=== PATIENT | female | born 1995 | race Caucasian/White ===

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

== ENCOUNTER 2017-06-20 06:15 | Inpatient (IN) | payer BC, OTHER ==
--- NOTE | 2017-06-19 19:09 | P.HPOB ---
History of Present Illness H&P Date: 06/19/17 Chief Complaint: Induction of labor This is a 21-year-old female 2 para 0 with an estimated date of confinement of 06/16/2017, estimated gestational age of 40-4/7 weeks, who presents to labor and delivery for induction of labor. She admits to good movement. She denies any rupture membranes. She has been feeling irregular pressure and cramping but no regular contractions. course has been uncomplicated. labs: Group B streptococcus-negative One hour Glucola-83 Random glucose-84 Blood type-A+ Antibody screen-negative HIV-nonreactive Syphilis antibody-negative nonreactive GC/chlamydia-negative Hepatitis B surface antigen-negative Hemoglobin-13.3 Rubella-low positive Obstetrical history: . History of 1 miscarriage (confidential). PRODUCE ASSISTANT history: No history of sexual transmitted diseases. Social history: She is single. 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 Review of Systems Constitutional: Denies chills, Denies fever Eyes: denies blurred vision, denies pain Ears, nose, mouth and throat: Denies headache, Denies sore throat Cardiovascular: Denies chest pain, Denies shortness of breath Respiratory: Denies cough Gastrointestinal: Reports abdominal pain (Irregular contractions) Genitourinary: Reports pelvic pain, Reports Musculoskeletal: Reports low back pain Integumentary: Denies pruritus, Denies rash Neurological: Denies numbness, Denies weakness Psychiatric: Denies anxiety, Denies depression Past Medical History Past Medical History: No Reported History History of Any Multi-Drug Resistant Organisms: None Reported Additional Past Surgical History / Comment(s): [place] teeth Past Psychological History: No Psychological Hx Reported Smoking Status: Never smoker Past Alcohol Use History: None Reported Past Drug Use History: None Reported Medications and Allergies Home Medications Medication Instructions Recorded Confirmed Type No Known Home Medications [No 05/23/15 05/23/15 History Known Home Medications] Allergies Allergy/AdvReac Type Severity Reaction Status Date / Time No Known Allergies Allergy Verified 05/23/15 18:59 Exam Osteopathic Statement: *. No significant issues noted on an osteopathic structural exam other than those noted in the History and Physical/Consult. HEENT: Within normal limits Heart: Regular rate and rhythm Lungs: Clear to auscultation bilaterally Abdomen: heart tones: 130s by Doppler. Cervix: 1 cm/60%/-2 Extremities: Negative Homans Assessment and Plan (1) 40 weeks gestation of Status: Acute Code(s): Z3A.40 - 40 WEEKS GESTATION OF SNOMED Code( s): 26031573 Plan: Proceed with oxytocin induction of labor. Expectant management. Epidural anesthesia if desired.
[2017-06-20] MEDS ORDERED: LIDOCAINE 1% (PF) 10 MG/ML (30 ML SDV) SQ PRN (06:39)
[2017-06-20] MEDS ORDERED: LIDOCAINE 1% 20 ML VIAL (10MG/ML) FOR IV START INTRADERMA PRN (06:39)
[2017-06-20] MEDS ORDERED: OXYTOCIN 20 UNITS/1000 ML NS 1,000 ML IV SCH (06:39)
[2017-06-20] MEDS ORDERED: METHYLERGONOVINE 0.2 MG/ML 1 ML AMP IM PRN (06:39)
[2017-06-20] MEDS ORDERED: CARBOPROST TROMETHAMINE 250 MCG/ML 1 ML AMP IM PRN (06:39)
[2017-06-20] MEDS ORDERED: TERBUTALINE 1 MG/ML VIAL SQ PRN (06:39)
[2017-06-20] MEDS ORDERED: OXYTOCIN 10 UNIT/ML 1 ML VIAL IM PRN (06:39)
[2017-06-20 06:50] VITALS: BMI 31.1
[2017-06-20] MEDS: LACTATED RINGERS 1,000 ML IV SCH ×2 (06:57→14:12)
[2017-06-20 07:14] LABS: Basophils % (A) 0 %; Eosinophils # (A) 0.3 k/uL (0-0.7); Eosinophils % (A) 2 %; HCT 35.9 % (34.0-46.0); HGB 11.6 gm/dL (11.4-16.0); Lymphocytes # (A) 2.1 k/uL (1.0-4.8); Lymphocytes % (A) 19 %; MCH 29.5 pg (25.0-35.0); MCHC 32.4 g/dL (31.0-37.0); MCV 91.2 fL (80.0-100.0); Mean Platelet Volume 11.7; Monocytes # (A) 0.5 k/uL (0-1.0); Monocytes % (A) 4 %; Neutrophils # (A) 8.1 k/uL (1.3-7.7); Neutrophils % (A) 72 %; Platelet Count 164 k/uL (150-450); RBC 3.94 m/uL (3.80-5.40); RDW 13.4 % (11.5-15.5); WBC 11.1 k/uL (4.0-11.0)
[2017-06-20 08:52] LABS: Large Platelets Present
[2017-06-20] MEDS: BUTORPHANOL 1 MG/ML 1 ML VIAL IV PRN ×3 (10:24→15:14)
[2017-06-20] MEDS ORDERED: SODIUM CHLORIDE 0.9% 100 ML BAG ONE (16:29)
[2017-06-20] MEDS ORDERED: BUPIVACAINE (PF) 0.25% 30 ML VIAL ONE (16:29)
[2017-06-20] MEDS ORDERED: fentaNYL (PF) 50 MCG/ML 5 ML AMP ONE (16:29)
[2017-06-21] MEDS: LACTATED RINGERS 1,000 ML IV SCH ×3 (00:03→20:58)
[2017-06-21] MEDS ORDERED: ceFAZolin IN SWFI 2 GM/20 ML SYRINGE IVP ONE (01:28)
[2017-06-21] MEDS ORDERED: LACTATED RINGERS 1,000 ML IV ONE (01:28)
[2017-06-21] MEDS ORDERED: CITRIC ACID-SODIUM CITRATE 15 ML CUP PO ONE (01:28)
[2017-06-21] MEDS ORDERED: BUPIVACAINE (PF) 0.25% 30 ML VIAL ONE (02:07)
[2017-06-21] MEDS ORDERED: KETOROLAC 30 MG/ML 1 ML VIAL ONE (02:07)
[2017-06-21] MEDS ORDERED: OXYTOCIN 10 UNIT/ML 1 ML VIAL ONE (02:07)
[2017-06-21] MEDS ORDERED: SODIUM CHLORIDE 0.9% 100 ML BAG ONE (02:07)
[2017-06-21] MEDS ORDERED: ONDANSETRON 4 MG/2 ML VIAL ONE (02:07)
[2017-06-21] MEDS ORDERED: fentaNYL (PF) 50 MCG/ML 5 ML AMP ONE (02:07)
[2017-06-21] MEDS ORDERED: MIDAZOLAM 2 MG/2 ML VIAL ONE (02:07)
--- NOTE | 2017-06-21 02:55 | P.OP ---
Date of Procedure: 06/21/17 Preoperative Diagnosis: 1. Intrauterine at 40-5/7 weeks. 2. Failure to progress. Postoperative Diagnosis: Same Procedure(s) Performed: Primary low transverse section Anesthesia: epidural Surgeon: Twyla Madden Bottomer Operator #1: Lynn Palacios Estimated Blood Loss (ml): 500 Pathology: other (Placenta) Condition: stable Disposition: floor Indications for Procedure: This is a 21-year-old female 2 para 0 at 40-4/7 weeks who presented for induction of labor. She underwent oxytocin induction of labor and did receive epidural anesthesia. She reached a maximum of 5-1/2 cm with no change control specialist at least it 2-3 hour period of time despite regular contractions. At this point she was almost 18 hours into her labor process. She was offered a section versus proceeding with waiting out labor longer and she wishes to proceed with . I have discussed the risks, benefits, and alternative therapies for the above- mentioned procedure and for both sedation/anesthesia as well as necessary blood products administration, if indicated, as they pertain to this patient. The patient has indicated her understanding and acceptance of the risks and procedures discussed. Operative Findings: A viable male is noted in the vertex presentation and a RAJI lie. There was noted some caput slightly off to the side of the head. Infant scores of 9 at 1 minute and 9 at 5 minutes and infant weight of 8 lbs. 6 oz. Normal uterus tubes and ovaries are noted. Description of Procedure: The patient is taken to the operating room where she is placed in the dorsal supine position with leftward tilt after epidural anesthesia is bolused. She is prepped and draped in the normal sterile fashion. Skin was tested and found to be adequately anesthetized. A Pfannenstiel skin incision was made with a scalpel. A second knife was used to carry the incision down to the underlying layer of fascia. The fascia was nicked in the midline with a scalpel and then extended laterally bilaterally with King scissors. The anterior lip of the fascia was grasped with 2 Chidi clamps and then dissected off the underlying rectus muscle in the midline with King scissors. The inferior aspect of the fascial incision was grasped with 2 Chidi clamps and dissected off the underlying rectus muscle and the midline with King scissors. Next the peritoneum layer was tented up with 2 hemostats and then entered sharply with the scalpel. The incision is extended superiorly and inferiorly with Metzenbaum scissors. Next a DeLee retractor is placed. The vesicouterine peritoneum is entered sharply with Metzenbaum scissors and extended laterally bilaterally with Metzenbaum scissors and then the bladder flap is pushed inferiorly. The lower uterine segment is incised in transverse fashion with the scalpel and then bluntly entered with a hemostat. Clear fluid is noted. The incision was then extended laterally bilaterally with 2 fingers. Next the 's head is delivered through the incision. Nose and mouth are bulb suctioned. The remainder of the is easily delivered and placed on mother 's abdomen. Cord is clamped and cut. is taken to warmer by nursing staff. Uterine fundus is gently massaged and placenta is delivered manually. Uterus is exteriorized and cleared of all clots and debris. Uterine incision is closed with 0 Vicryl suture in a running locked fashion. A second layer of 0 Vicryl suture is used in a running fashion for hemostasis. Once adequate hemostasis as assured, the vesicouterine peritoneum is reapproximated with 2-0 Vicryl suture in a running fashion. Posterior cul-de-sac is suctioned of all clots and debris. Uterus is returned to the abdomen. Incision is noted to be hemostatic. Peritoneal layer is closed with 0 Vicryl suture in a running fashion. Muscle layer is reapproximated with 0 Vicryl suture in interrupted fashion. Fascia layer is then closed with 0 PDS suture with 2 sutures meeting in the midline and the knots buried in either side and in the midline. The subcutaneous tissue was then closed with 2-0 Vicryl suture. Skin layer was then closed with car. All sponge and needle counts are correct. The patient is taken to recovery room in stable condition.
[2017-06-21] MEDS ORDERED: ZOLPIDEM 5 MG TAB PO PRN (02:59)
[2017-06-21] MEDS ORDERED: ACETAMINOPHEN TAB 325 MG TAB PO PRN ×2 (02:59)
[2017-06-21] MEDS ORDERED: diphenhydrAMINE 50 MG CAP PO PRN (02:59)
[2017-06-21] MEDS ORDERED: ONDANSETRON 4 MG/2 ML VIAL IVP PRN (02:59)
[2017-06-21] MEDS ORDERED: NALOXONE 0.4 MG/ML 1 ML VIAL IV PRN (02:59)
[2017-06-21] MEDS ORDERED: MEASLES-MUMPS-RUBELLA VACC/PF 12,500 UNIT/0.5 ML VIAL SQ ONE (02:59)
[2017-06-21] MEDS ORDERED: BENZOCAINE/MENTHOL SPRAY 1 GM/SPRAY AEROSOL TOPICAL PRN (02:59)
[2017-06-21] MEDS ORDERED: diphenhydrAMINE 50 MG/ML 1 ML VIAL IVP PRN ×2 (02:59)
[2017-06-21] MEDS ORDERED: IBUPROFEN 600 MG TAB PO PRN (02:59)
[2017-06-21] MEDS ORDERED: HYDROmorphone PCA 5 MG/25 ML SYRINGE IV PRN (02:59)
[2017-06-21] MEDS ORDERED: OXYTOCIN 20 UNITS/1000 ML NS 1,000 ML IV SCH (02:59)
[2017-06-21] MEDS ORDERED: SIMETHICONE 80 MG CHEWABLE PO PRN (02:59)
[2017-06-21] MEDS ORDERED: METOCLOPRAMIDE 5 MG/ML 2 ML VIAL IVP PRN (02:59)
[2017-06-21] MEDS ORDERED: LANOLIN CREAM 5 GM TUBE TOPICAL PRN (02:59)
[2017-06-21] MEDS ORDERED: HYDROCORTISONE 2.5% RECTAL CREAM 30 GM TUBE RECTAL PRN (02:59)
[2017-06-21] MEDS ORDERED: WITCH HAZEL 1 EACH MED..PAD TOPICAL PRN (02:59)
[2017-06-21] MEDS ORDERED: Acetaminophen-Codeine 300-30mg TAB PO PRN (02:59)
[2017-06-21] MEDS ORDERED: diphenhydrAMINE 25 MG CAP PO PRN (02:59)
[2017-06-21] MEDS: KETOROLAC 30 MG/ML 1 ML VIAL IVP PRN ×3 (08:34→20:54)
[2017-06-21] MEDS: SENNOSIDES-DOCUSATE SODIUM 1 EACH TAB PO SCH ×3 (08:35→20:54)
[2017-06-22] MEDS: KETOROLAC 30 MG/ML 1 ML VIAL IVP PRN (02:31)
[2017-06-22] MEDS: Acetaminophen-Codeine 300-30mg TAB PO PRN ×3 (04:13→19:58)
[2017-06-22] MEDS: IBUPROFEN 600 MG TAB PO PRN ×3 (05:37→23:43)
[2017-06-22 07:25] LABS: Basophils # (A) 0.1 k/uL (0-0.2); Basophils % (A) 0 %; Eosinophils # (A) 0.3 k/uL (0-0.7); Eosinophils % (A) 2 %; HCT 36.4 % (34.0-46.0); HGB 11.6 gm/dL (11.4-16.0); Lymphocytes # (A) 2.6 k/uL (1.0-4.8); Lymphocytes % (A) 18 %; MCH 29.5 pg (25.0-35.0); MCHC 31.8 g/dL (31.0-37.0); Mean Platelet Volume 11.6; Monocytes # (A) 0.5 k/uL (0-1.0); Monocytes % (A) 4 %; Neutrophils # (A) 10.6 k/uL (1.3-7.7); Neutrophils % (A) 75 %; Platelet Count 162 k/uL (150-450); RBC 3.92 m/uL (3.80-5.40); RDW 13.8 % (11.5-15.5); WBC 14.1 k/uL (4.0-11.0)
[2017-06-22 07:41] LABS: Polychromasia Present
[2017-06-22] MEDS: SENNOSIDES-DOCUSATE SODIUM 1 EACH TAB PO SCH ×2 (08:11→23:18)
--- NOTE | 2017-06-22 12:15 | P.PNOBGPC ---
Subjective - Subjective Principal diagnosis: Status post primary section postoperative day #1 Interval history: Patient is doing well. She is ambulating. She is breast-feeding. She is passing flatus but no bowel movement yet. Lochia is decreasing. Pain is fairly well controlled with ibuprofen and Tylenol. Patient reports: Reports appetite normal, Reports voiding normally, Reports pain well controlled, Reports ambulating normally [place]: doing well, nursing well Objective - Vital Signs Latest vital signs: Vital Signs Temp Pulse Resp BP Pulse Ox 06/22/17 08:00 98.1 F 80 16 118/67 06/22/17 04:14 98.0 F 72 12 114/66 97 06/22/17 00:00 98.1 F 76 15 113/68 98 06/21/17 20:00 98.7 F 85 16 120/70 06/21/17 15:28 98.1 F 78 16 124/68 99 Intake and Output 06/21/17 06/22/17 06/22/17 22:59 06:59 14:59 Intake Total 5 Output Total 450 Balance -450 5 Intake: IV 5 Invasive Line 1 5 Output: Urine 450 - Exam Extremities: Present: edema. Absent: tenderness Abdomen: Present: normal appearance, soft (Positive bowel sounds 4). Absent: distention, tenderness Incision: Present: normal, dry, intact. Absent: erythematous Uterus: Present: normal, firm. Absent: tenderness - Labs Labs: Abnormal Lab Results - Last 24 Hours (Table) 06/22/17 Range/Units 07:00 WBC 14.1 H (4.0-11.0) k/uL Neutrophils # 10.6 H (1.3-7.7) k/uL Assessment and Plan Assessment: Impression is status post primary section postoperative day #1. (1) 40 weeks gestation of Current Visit: Yes Status: Acute Code(s): Z3A.40 - 40 WEEKS GESTATION OF SNOMED Code(s): 71420319 Plan: Plan is to continue with postoperative care. Diet as tolerated. Advised alternate pain medication for adequate pain control.
[2017-06-22] MEDS: LACTATED RINGERS 1,000 ML IV SCH (23:17)
[2017-06-23] MEDS: Acetaminophen-Codeine 300-30mg TAB PO PRN ×2 (03:50→12:14)
--- NOTE | 2017-06-23 08:34 | P.DS ---
Providers Date of admission: 06/20/17 06:20 Expected date of discharge: 06/23/17 Attending physician: Twyla Madden Primary care physician: Stated None - Discharge Diagnosis(es) (1) 40 weeks gestation of Current Visit: Yes Status: Acute Hospital Course: This is a 21-year-old female 2 para 0 at 40-4/7 weeks who presented for induction of labor. She underwent oxytocin induction of labor and reached a maximum dilation of 5-1/2 cm. She therefore underwent a primary low transverse section on 06/21/2017 and delivered a viable female in the vertex presentation with Apgars of 9 at 1 minute and 9 at 5 minutes and weight of 8 lbs. 6 oz. Her postoperative course has been essentially uncomplicated. Her pain is fairly well controlled with ibuprofen and Tylenol 3. She is passing flatus and bowel movement. She is breast-feeding. Vital signs are stable. Abdomen is soft with fundus firm and nontender. Positive bowel sounds are present 4. Incision is clean dry and intact. Extremities show negative Homans. Impression is status post primary low transverse section postoperative day #2. Plan is to discharge home today. Routine postoperative and instructions are given. Marci will be removed and Steri-Strips placed prior to discharge. She will be given prescriptions for ibuprofen, Tylenol No. 3, and a breast pump. She is advised to follow up in the office in approximately 1 week for a postoperative check and in 6 weeks for check. She is advised to call the office if she has any further questions or concerns prior to her appointment times. Procedures: Oxytocin induction of labor Primary low transverse section on 06/21/2017 Patient Condition at Discharge: Stable Plan - Discharge Summary New Discharge Prescriptions: New Acetaminophen-Codeine 300-30mg [Tylenol w/codeine #3] 1 each PO Q4HR PRN #30 tab PRN Reason: Mild Pain Ibuprofen [Motrin] 600 mg PO Q6HR PRN #60 tab PRN Reason: Mild Pain Or Fever >= 100.5 Continue Pnv No.111/Iron/Folate/Dha [Nestabs One Softgel] 1 each PO DAILY Discharge Medication List Pnv No.111/Iron/Folate/Dha [Nestabs One Softgel] 1 each PO DAILY 06/20/17 [ History] Acetaminophen-Codeine 300-30mg [Tylenol w/codeine #3] 1 each PO Q4HR PRN #30 tab 06/23/17 [Rx] Ibuprofen [Motrin] 600 mg PO Q6HR PRN #60 tab 06/23/17 [Rx] Follow up Appointment(s)/Referral(s): Twyla Madden DO [Doctor of Osteopathic Medicine] - 1 Week Activity/Diet/Wound Care/Special Instructions: Instructions 1. Do not begin any exercise program for 3 weeks. 2. Do not resume sexual relations for 3 weeks or longer if uncomfortable. 3. You may take tub baths or showers at any time. 4. You may use tampons if desired after 3 weeks. 5. Keep the area of episiotomy (stitches) clean and dry. 6. If you are not nursing, wear a good fitting, supportive bra during the day and limit fluid intake for at least 1 week to prevent breast engorgement. 7. Call the office, [phone], within the next week to make appointment for your 6 week checkup if it has not already been made. 8. Report any of the following occurrences to the doctor promptly: a. Heavy, excessive bleeding b. Chills, fever c. Burning or frequency of urination d. Pain or redness and breasts if nursing e. Increasing pain or swelling in episiotomy (stitches). In addition to the above instructions, the following additional should be followed: 1. No heavy lifting or straining (exercising) until after 6 week checkup. 2. Keep abdominal incision clean and dry: You may wear a dressing if more comfortable. 3. Make office appointment for 10 days after going home or as instructed by her doctor. Discharge Disposition: HOME SELF-CARE
[2017-06-23] MEDS: SENNOSIDES-DOCUSATE SODIUM 1 EACH TAB PO SCH (08:47)
[2017-06-23] MEDS: IBUPROFEN 600 MG TAB PO PRN (08:47)
[2017-06-23 11:30] VITALS: BP 129/74; PULSE 75; RESP 18; TEMP 97.7
== END 2017-06-23 12:53 | disposition home or self-care (01) | DRG 766 ==
LOC: 4FBP 06:20
PROVIDERS: ADMIT Obstetrics & Gynecology; ATTEND Obstetrics & Gynecology
PROC: 3E033VJ Introduction of Other Hormone into Peripheral Vein, Percutaneous Approach (ICD-10-PCS; 2017-06-21)
PROC: 00HU33Z Insertion of Infusion Device into Spinal Canal, Percutaneous Approach (ICD-10-PCS; 2017-06-21)
PROC: 3E0R3NZ Introduction of Analgesics, Hypnotics, Sedatives into Spinal Canal, Percutaneous Approach (ICD-10-PCS; 2017-06-21)
PROC: 10D00Z1 Extraction of Products of Conception, Low, Open Approach (ICD-10-PCS; principal; 2017-06-21 02:00)
DX: O48.0 Post-term pregnancy (principal); O62.2 Other uterine inertia; Z3A.40 40 weeks gestation of pregnancy; Z37.0 Single live birth
CPT/HCPCS: 85025; 86850; 86900; 86901; 88307; 90707

== ENCOUNTER → 2018-07-01 | Outpatient (CLI) | payer BC, OTHER ==
--- NOTE | 2018-07-01 09:21 | US ---
EXAMINATION TYPE: US abdomen complete DATE OF EXAM: 07/01/2018 COMPARISON: NONE CLINICAL HISTORY: R10.11 Right Upper Quadrant abd pain. EXAM MEASUREMENTS: Liver Length: 15.5 cm Gallbladder Wall: 0.2 cm CBD: 0.4 cm Spleen: 12.7 cm Right Kidney: 11.8 x 4.0 x 5.1 cm Left Kidney: 10.6 x 5.5 x 4.5 cm Pancreas: not well delineated, Liver: wnl Gallbladder: No stones seen Evidence for sonographic Zabala's sign: no CBD: wnl Spleen: wnl Right Kidney: No hydronephrosis or masses seen Left Kidney: No hydronephrosis or masses seen Upper IVC: wnl Abd Aorta: wnl The liver is homogenous. The intrahepatic portion of the IVC and proximal abdominal aorta are within normal limits. There is no evidence of cholelithiasis. Common bile duct is unremarkable. The visu alized portions of the pancreas are homogenous. The spleen is unremarkable. Kidneys are symmetric a nd free of hydronephrosis. No renal lesions are seen. IMPRESSION: No distinct abnormality appreciated.
== END | disposition home or self-care (01) ==
LOC: RADUSWWP 07:44
PROVIDERS: ATTEND Internal Medicine
DX: R10.11 Right upper quadrant pain (principal)
CPT/HCPCS: 76700

== ENCOUNTER → 2019-10-21 | Outpatient (CLI) | payer BC, OTHER ==
[2019-10-21 14:51] LABS: HCT 38.2 % (34.0-46.0); HGB 12.5 gm/dL (11.4-16.0); MCH 29.4 pg (25.0-35.0); MCHC 32.6 g/dL (31.0-37.0); MCV 90.3 fL (80.0-100.0); Mean Platelet Volume 9.9; Platelet Count 227 k/uL (150-450); RBC 4.23 m/uL (3.80-5.40); RDW 12.8 % (11.5-15.5); WBC 11.4 k/uL (3.8-10.6)
[2019-10-22 00:26] LABS: Non-African American GFR(CKD) 129.4 (60.0-200.0)
[2019-10-22 00:40] LABS: Hepatitis B Surface Antigen Non-Reactive (Non-Reactive)
[2019-10-22 08:47] LABS: HIV 2 AB Non-Reactive (Non-Reactive); HIV AB P24 Non-Reactive (Non-Reactive); HIV P24 AG Non-Reactive (Non-Reactive)
== END | disposition home or self-care (01) ==
LOC: LABWHC1 14:01
PROVIDERS: ATTEND Obstetrics & Gynecology
DX: Z34.81 Encounter for supervision of other normal pregnancy, first trimester (principal); Z3A.00 Weeks of gestation of pregnancy not specified
CPT/HCPCS: 36415; 82565; 82947; 85027; 86762; 86780; 86850; 86900; 86901; 87340; 87390

== ENCOUNTER 2020-05-16 06:14 | Inpatient (IN) | payer BC, OTHER ==
--- NOTE | 2020-05-15 07:15 | P.HPOB ---
History of Present Illness H&P Date: 05/15/20 Chief Complaint: Scheduled repeat section This is a 24 y.o. female, 3, para 1, with an estimated date of confinement of 05/20/2020, estimated gestational age of 39-3/7 weeks, presents for scheduled repeat section. She denies regular contractions, but does complain of lower back pain and lower extremity swelling. labs: GC/Chlamydia/Trich-neg HIV-NR Hemoglobin-12.5 Random glucose-87 Hepatitis B surface antigen-neg Rubella-immune Syphyillis antigen-neg Blood type-A+ Antibody screen-neg Quad screen-neg 1 hr. GTT-86 GBS-neg OB Hx: . History of 1 at 40-4/7 weeks due to failed induction. 1 miscarriage. 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 Review of Systems Constitutional: Denies chills, Denies fever Eyes: denies blurred vision, denies pain Ears, nose, mouth and throat: Denies headache, Denies sore throat Cardiovascular: Denies chest pain, Denies shortness of breath Respiratory: Denies cough Gastrointestinal: Denies abdominal pain, Denies diarrhea, Denies nausea, Denies vomiting Genitourinary: Reports pelvic pain, Reports Musculoskeletal: Reports low back pain Musculoskeletal: bilateral: ankle swelling, foot swelling Integumentary: Denies pruritus, Denies rash Neurological: Denies numbness, Denies weakness Psychiatric: Denies anxiety, Denies depression Past Medical History Past Medical History: No Reported History History of Any Multi-Drug Resistant Organisms: None Reported Past Surgical History: Section Additional Past Surgical History / Comment(s): [place] teeth Past Anesthesia/Blood Transfusion Reactions: No Reported Reaction Past Psychological History: No Psychological Hx Reported Smoking Status: Never smoker Past Alcohol Use History: None Reported Past Drug Use History: None Reported - Past Family History Mother Family Medical History: Hypertension Medications and Allergies Home Medications Medication Instructions Recorded Confirmed Type Multivit No.42/Iron/Folate/Dha 1 each PO DAILY 06/20/17 05/16/20 History [Nestabs One Softgel] Allergies Allergy/AdvReac Type Severity Reaction Status Date / Time No Known Allergies Allergy Verified 05/15/20 11:55 Exam Osteopathic Statement: *. No significant issues noted on an osteopathic structural exam other than those noted in the History and Physical/Consult. HEENT: within normal limits Heart: regular rate and rhythm Lungs: clear to auscultation bilaterally Abdomen: soft, non-tender, Cervix: closed/uneffaced/out of pelvis heart tones: 140's by doppler Extremities: 1+ pitting edema lower extremities Results Result Diagrams: 05/16/20 06:43 Assessment and Plan (1) 39 weeks gestation of Current Visit: No Status: Acute Code(s): Z3A.39 - 39 WEEKS GESTATION OF SNOMED Code(s): 02801960 (2) Previous delivery affecting Current Visit: No Status: Acute Code(s): O34.219 - MATERNAL CARE FOR UNSP TYPE SCAR FROM PREVIOUS DEL SNOMED Code(s): 296897175 Plan: Proceed with repeat section. I have discussed the risks, benefits, and alternative therapies for the above- mentioned procedure and for both sedation/anesthesia as well as necessary blood products administration, if indicated, as they pertain to this patient. The patient has indicated her understanding and acceptance of the risks and procedures discussed.
[2020-05-15 11:58] VITALS: BMI 34.5
[2020-05-16] MEDS ORDERED: LACTATED RINGERS 1,000 ML IV ONE (06:19)
[2020-05-16] MEDS ORDERED: LIDOCAINE 1% (10MG/ML) FOR IV START INTRADERMA PRN (06:19)
[2020-05-16] MEDS ORDERED: CITRIC ACID-SODIUM CITRATE 15 ML CUP PO ONE (06:19)
[2020-05-16 07:12] LABS: Basophils # (A) 0.1 k/uL (0-0.2); Basophils % (A) 1 %; Eosinophils # (A) 0.2 k/uL (0-0.7); Eosinophils % (A) 2 %; HCT 35.6 % (34.0-46.0); HGB 11.9 gm/dL (11.4-16.0); Lymphocytes # (A) 1.9 k/uL (1.0-4.8); Lymphocytes % (A) 19 %; MCH 29.7 pg (25.0-35.0); MCHC 33.4 g/dL (31.0-37.0); MCV 88.7 fL (80.0-100.0); Mean Platelet Volume 11.1; Monocytes # (A) 0.4 k/uL (0-1.0); Monocytes % (A) 4 %; Neutrophils # (A) 7.4 k/uL (1.3-7.7); Neutrophils % (A) 74 %; Platelet Count 142 k/uL (150-450); RBC 4.01 m/uL (3.80-5.40); RDW 13.9 % (11.5-15.5); WBC 10.1 k/uL (3.8-10.6)
[2020-05-16] MEDS ORDERED: MORPHINE SULFATE (PF) 0.3 MG/0.3 ML SYR ONE (08:00)
[2020-05-16] MEDS ORDERED: KETOROLAC 15 MG/ML 1 ML VIAL ONE (08:00)
[2020-05-16] MEDS ORDERED: NALBUPHINE 10 MG/ML (1 ML AMP) ONE (08:00)
[2020-05-16] MEDS ORDERED: ONDANSETRON 4 MG/2 ML VIAL ONE (08:00)
--- NOTE | 2020-05-16 08:44 | P.OP ---
Date of Procedure: 05/16/20 Preoperative Diagnosis: 1. Intrauterine at 39-3/7 weeks. 2. History of previous section. Postoperative Diagnosis: Same Procedure(s) Performed: Repeat low transverse section Anesthesia: spinal (Duramorph) Surgeon: Twyla Madden Shipping And Receiving Assistant #1: Prateek Kwan Estimated Blood Loss (ml): 600 Pathology: none sent Condition: stable Disposition: floor Indications for Procedure: This is a 24-year-old female 3 para 1 at 39-3/7 weeks who presents for scheduled repeat section. I have discussed the risks, benefits, and alternative therapies for the above- mentioned procedure and for both sedation/anesthesia as well as necessary blood products administration, if indicated, as they pertain to this patient. The patient has indicated her understanding and acceptance of the risks and procedures discussed. Operative Findings: A viable female is noted in the vertex presentation with scores of 9 at 1 minute and 10 at 5 minutes and infant weight of 7 lbs. 2 oz. Normal uterus tubes and ovaries are noted. Description of Procedure: The patient is taken to the operating room where she is placed in the dorsal supine position with leftward tilt after spinal Duramorph anesthesia is given. She is prepped and draped in the normal sterile fashion. Skin was tested and found to be adequately anesthetized. A Pfannenstiel skin incision was made with a scalpel removing the previous laparotomy scar. A second knife was used to carry the incision down to the underlying layer of fascia. The fascia was nicked in the midline with a scalpel and then extended laterally bilaterally with King scissors. The anterior lip of the fascia was grasped with 2 Chidi clamps and then dissected off the underlying rectus muscle in the midline with King scissors. The inferior aspect of the fascial incision was grasped with 2 Chidi clamps and dissected off the underlying rectus muscle and the midline with King scissors. Next the peritoneum layer was tented up with 2 hemostats and then entered sharply with the scalpel. The incision is extended superiorly and inferiorly with Metzenbaum scissors. Next a DeLee retractor is placed. The vesicouterine peritoneum is entered sharply with Metzenbaum scissors and extended laterally bilaterally with Metzenbaum scissors and then the bladder flap is pushed inferiorly. The lower uterine segment is incised in transverse fashion with the scalpel and then bluntly entered with a hemostat. Clear fluid is noted. The incision was then extended laterally bilaterally with 2 fingers. Next the 's head is delivered through the incision. Nose and mouth are bulb suctioned. The remainder of the infant is easily delivered and placed on mother's abdomen. Cord is clamped and cut. Infant is taken to warmer by nursing staff. Uterine fundus is gently massaged and placenta is delivered manually. Uterus is exteriorized and cleared of all clots and debris. Uterine incision is closed with 0 Vicryl suture in a running locked fashion. A second layer of 0 Vicryl suture is used in a running fashion for hemostasis. Once adequate hemostasis as assured, the vesicouterine peritoneum is reapproximated with 2-0 Vicryl suture in a running fashion. Posterior cul-de-sac is suctioned of all clots and debris. Uterus is returned to the abdomen. Incision is noted to be hemostatic. Peritoneal layer is closed with 0 Vicryl suture in a running fashion. Muscle layer is reapproximated with 0 Vicryl suture in interrupted fashion. Fascia layer is then closed with 0 PDS suture with 2 sutures meeting in the midline and the knots buried in either side and in the midline. The subcutaneous tissue was then closed with 2-0 Vicryl suture. Skin layer was then closed with car. All sponge and needle counts are correct. The patient is taken to recovery room in stable condition.
[2020-05-16] MEDS ORDERED: ACETAMINOPHEN TAB 325 MG TAB PO PRN (08:49)
[2020-05-16] MEDS ORDERED: diphenhydrAMINE 50 MG CAP PO PRN (08:49)
[2020-05-16] MEDS ORDERED: HYDROcodone/APAP 7.5-325MG 1 EACH TAB PO PRN (08:49)
[2020-05-16] MEDS ORDERED: SIMETHICONE 80 MG CHEWABLE PO PRN (08:49)
[2020-05-16] MEDS ORDERED: diphenhydrAMINE 50 MG/ML 1 ML VIAL IVP PRN (08:49)
[2020-05-16] MEDS ORDERED: LANOLIN CREAM 5 GM TUBE TOPICAL PRN (08:49)
[2020-05-16] MEDS ORDERED: ONDANSETRON 4 MG/2 ML VIAL IVP PRN (08:49)
[2020-05-16] MEDS ORDERED: NALOXONE 0.4 MG/ML 1 ML VIAL IV PRN (08:49)
[2020-05-16] MEDS ORDERED: METOCLOPRAMIDE 5 MG/ML 2 ML VIAL IVP PRN (08:49)
[2020-05-16] MEDS ORDERED: ZOLPIDEM 5 MG TAB PO PRN (08:49)
[2020-05-16] MEDS ORDERED: diphenhydrAMINE 25 MG CAP PO PRN (08:49)
[2020-05-16] MEDS ORDERED: OXYTOCIN 20 UNITS/1000 ML NS 1,000 ML IV SCH (08:49)
[2020-05-16] MEDS: LACTATED RINGERS 1,000 ML IV SCH ×2 (10:33→21:10)
[2020-05-16] MEDS: PRENATAL VIT-IRON-FOLIC ACID 1 EACH CAP PO SCH (10:33)
[2020-05-16] MEDS: diphenhydrAMINE 50 MG/ML 1 ML VIAL IVP PRN ×2 (13:54→22:24)
[2020-05-16] MEDS: KETOROLAC 15 MG/ML 1 ML VIAL IVP PRN ×2 (14:53→21:16)
[2020-05-16] MEDS: SENNOSIDES-DOCUSATE SODIUM 1 EACH TAB PO SCH (19:49)
[2020-05-17] MEDS: KETOROLAC 15 MG/ML 1 ML VIAL IVP PRN (02:26)
[2020-05-17 06:01] LABS: Basophils # (A) 0.1 k/uL (0-0.2); Basophils % (A) 1 %; Eosinophils # (A) 0.3 k/uL (0-0.7); Eosinophils % (A) 3 %; HCT 34.6 % (34.0-46.0); HGB 11.6 gm/dL (11.4-16.0); Lymphocytes # (A) 1.9 k/uL (1.0-4.8); Lymphocytes % (A) 19 %; MCH 30.2 pg (25.0-35.0); MCHC 33.5 g/dL (31.0-37.0); MCV 90.2 fL (80.0-100.0); Mean Platelet Volume 10.8; Monocytes # (A) 0.4 k/uL (0-1.0); Monocytes % (A) 4 %; Neutrophils # (A) 7.3 k/uL (1.3-7.7); Neutrophils % (A) 73 %; Platelet Count 150 k/uL (150-450); RBC 3.83 m/uL (3.80-5.40)
--- NOTE | 2020-05-17 06:12 | P.PNOBGPC ---
Subjective - Subjective Principal diagnosis: Status post repeat section postoperative day #1 Interval history: Patient is doing well. She has ambulated. Lochia is decreasing. Her pain is fairly well controlled with Toradol. Her spinal medication is starting to wear off this morning. She is complaining of some itching and has used Benadryl. She is breast-feeding. She has urinated without difficulty. She is not passing flatus or bowel movement yet. Patient reports: Reports appetite normal, Reports voiding normally, Reports pain well controlled, Reports ambulating normally : doing well, nursing well Objective - Vital Signs Latest vital signs: Vital Signs Temp Pulse Resp BP Pulse Ox 05/17/20 02:36 98.4 F 60 18 102/66 99 05/16/20 23:54 98.2 F 60 18 101/62 99 05/16/20 20:00 98.2 F 67 18 101/67 98 05/16/20 16:00 98.2 F 72 16 117/67 98 05/16/20 12:00 98.0 F 67 16 109/65 98 05/16/20 10:51 96.6 F L 61 16 123/66 99 05/16/20 10:21 96.3 F L 67 16 112/64 97 05/16/20 09:51 96.4 F L 81 16 108/61 98 05/16/20 09:36 75 18 115/68 98 05/16/20 09:21 96.4 F L 83 16 113/64 98 05/16/20 09:06 79 16 114/61 99 05/16/20 08:51 96.3 F L 77 16 104/58 98 05/16/20 07:28 97.1 F L 86 16 129/77 Intake and Output 05/16/20 05/16/20 05/17/20 14:59 22:59 06:59 Output Total 450 600 Balance -450 -600 Output: Urine 450 600 Other: # Voids 1 1 Weight 115.666 kg - Exam Extremities: Present: normal, edema (Trace) Abdomen: Present: normal appearance, soft (Positive bowel sounds 4). Absent: distention, tenderness Incision: Present: normal, dry, intact. Absent: erythematous Uterus: Present: normal, firm. Absent: tenderness - Labs Labs: Abnormal Lab Results - Last 24 Hours (Table) 12/29/20 Range/Units 06:43 Plt Count 142 L (150-450) k/uL Assessment and Plan Assessment: Status post repeat section postoperative day #1 (1) 39 weeks gestation of Current Visit: No Status: Acute Code(s): Z3A.39 - 39 WEEKS GESTATION OF SNOMED Code(s): 91735913 (2) Previous delivery affecting Current Visit: No Status: Acute Code(s): O34.219 - MATERNAL CARE FOR UNSP TYPE SCAR FROM PREVIOUS DEL SNOMED Code(s): 823721145 Plan: Continue postoperative and care. Patient encouraged to ambulate. Will continue Benadryl as needed for itching.
--- NOTE | 2020-05-17 07:01 | P.PN ---
Progress Note - Text Progress Note Date: 05/17/20 Postoperative day 1 status post section under spinal anesthesia, and intrathecal morphine given for postoperative analgesia, patient doing well, there is a anesthesia related competitions. Patient had no headache, vital signs stable Assessment and plan = postop day 1 status post , doing well there is no anesthesia related complication
[2020-05-17] MEDS: HYDROcodone/APAP 5-325MG 1 EACH TAB PO PRN ×3 (08:49→23:15)
[2020-05-17] MEDS: SENNOSIDES-DOCUSATE SODIUM 1 EACH TAB PO SCH ×2 (08:51→19:51)
[2020-05-17] MEDS: PRENATAL VIT-IRON-FOLIC ACID 1 EACH CAP PO SCH (13:10)
[2020-05-17] MEDS: IBUPROFEN 600 MG TAB PO PRN ×2 (13:10→22:23)
[2020-05-17 18:47] VITALS: RESP 16
[2020-05-18] MEDS: HYDROcodone/APAP 5-325MG 1 EACH TAB PO PRN ×2 (03:28→10:07)
[2020-05-18] MEDS: IBUPROFEN 600 MG TAB PO PRN (07:33)
[2020-05-18] MEDS: SENNOSIDES-DOCUSATE SODIUM 1 EACH TAB PO SCH (07:35)
[2020-05-18 08:31] VITALS: BP 107/70; PULSE 74; TEMP 97.8
--- NOTE | 2020-05-18 12:33 | P.DS ---
Providers Date of admission: 05/16/20 06:14 Expected date of discharge: 05/18/20 Attending physician: Twyla Madden Primary care physician: Stated None - Discharge Diagnosis(es) (1) 39 weeks gestation of Current Visit: No Status: Acute (2) Previous delivery affecting Current Visit: No Status: Acute Hospital Course: This is a 24-year-old female 3 para 1 at 39-3/7 weeks who presented for scheduled repeat low transverse section. She underwent the above procedure on 05/16/2020 and delivered a viable female with scores of 9 at 1 minute and 10 at 5 minutes and weight of 7 lbs. 2 oz. Her postoperative and course has been uncomplicated. She is passing flatus and bowel movement. Lochia is decreasing. She is urinating without difficulty. She is breast-feeding without difficulty. Vital signs are stable. Abdomen is soft with fundus firm and nontender. Extremities show negative Homans. Incision is clean dry and intact with Steri-Strips in place. Impression is status post repeat section postoperative day #2. Plan is to discharge home today. Routine and postoperative instructions are given. She will be given a prescription for ibuprofen and [place]. She has been counseled regarding opioid use and has signed a start opioid form. She is advised to follow up in the office in 1 week for a postoperative check and in 6 weeks for a check. She is advised to call the office if she has any further questions or concerns prior to her appointment time. Procedures: Repeat low transverse section on 05/16/2020 Patient Condition at Discharge: Stable Plan - Discharge Summary Discharge Rx Participant: Yes New Discharge Prescriptions: New Ibuprofen [Motrin] 600 mg PO Q6HR PRN #60 tab PRN Reason: Mild Pain Or Fever >= 100.5 HYDROcodone/APAP 5-325MG [[place] 5-325] 1 each PO Q4HR PRN #30 tab PRN Reason: Moderate Pain Continue Multivit No.42/Iron/Folate/Dha [Nestabs One Softgel] 1 each PO DAILY Discharge Medication List Multivit No.42/Iron/Folate/Dha [Nestabs One Softgel] 1 each PO DAILY 06/20/17 [History] HYDROcodone/APAP 5-325MG [[place] 5-325] 1 each PO Q4HR PRN #30 tab 05/18/20 [Rx] Ibuprofen [Motrin] 600 mg PO Q6HR PRN #60 tab 05/18/20 [Rx] Follow up Appointment(s)/Referral(s): Twyla Madden DO [Doctor of Osteopathic Medicine] - 1 Week Activity/Diet/Wound Care/Special Instructions: Instructions 1. Do not begin any exercise program for 3 weeks. 2. Do not resume sexual relations for 3 weeks or longer if uncomfortable. 3. You may take tub baths or showers at any time. 4. You may use tampons if desired after 3 weeks. 5. Keep the area of episiotomy (stitches) clean and dry. 6. If you are not nursing, wear a good fitting, supportive bra during the day and limit fluid intake for at least 1 week to prevent breast engorgement. 7. Call the office, [phone], within the next week to make appointment for your 6 week checkup if it has not already been made. 8. Report any of the following occurrences to the doctor promptly: a. Heavy, excessive bleeding b. Chills, fever c. Burning or frequency of urination d. Pain or redness and breasts if nursing e. Increasing pain or swelling in episiotomy (stitches). In addition to the above instructions, the following additional should be follow ed: 1. No heavy lifting or straining (exercising) until after 6 week checkup. 2. Keep abdominal incision clean and dry: You may wear a dressing if more comfortable. 3. Make office appointment for 10 days after going home or as instructed by her doctor. Discharge Disposition: HOME SELF-CARE
== END 2020-05-18 13:00 | disposition home or self-care (01) | DRG 788 ==
LOC: 4FBP 06:14
PROVIDERS: ADMIT Obstetrics & Gynecology; ATTEND Obstetrics & Gynecology
PROC: 10D00Z1 Extraction of Products of Conception, Low, Open Approach (ICD-10-PCS; principal; 2020-05-16 08:00)
DX: O34.211 Maternal care for low transverse scar from previous cesarean delivery (principal); Z37.0 Single live birth; Z3A.39 39 weeks gestation of pregnancy; Z82.49 Family history of ischemic heart disease and other diseases of the circulatory system
CPT/HCPCS: 85025; 86850; 86900; 86901

== ENCOUNTER 2021-01-27 17:00 | Emergency (ER) | payer BC, OTHER ==
[2021-01-27 17:18] VITALS: TEMP 98.5
--- NOTE | 2021-01-27 17:50 | ED ---
General Adult HPI - General Chief complaint: Back Pain/Injury Stated complaint: back pain Time Seen by Provider: 01/27/21 17:42 Source: patient, RN notes reviewed Mode of arrival: ambulatory Limitations: no limitations - History of Present Illness Initial comments: 25-year-old white female, alert and oriented 4, presents to the emergency room with complaints of low back pain for the past 3 days. She states it feels like an ache but when she bends to pickle cutter her child it is sharp in nature. Patient states that today she felt the urge to have a bowel movement and went to the bathroom. She states that she feels a rectal fullness and she felt something come out but was not stool so she pushed it back in. She denies any bleeding. This has happened twice today. She does have a history of 2 sections. No other abdominal surgeries. She denies any pain, nausea vomiting or fevers. -: days(s) (3) Location: back (low) Radiation: non-radiation Severity scale (1-10): 7 Quality: aching, sharp Consistency: intermittent Improves with: none Worsens with: other (lifting or bending) Associated Symptoms: other (rectal pressure) Treatments Prior to Arrival: other (tylenol) - Related Data Home Medications Medication Instructions Recorded Confirmed Escitalopram [Lexapro] 10 mg PO DAILY 01/27/21 01/27/21 Phentermine HCl [Adipex-P] 37.5 mg PO DAILY 01/27/21 01/27/21 Allergies Allergy/AdvReac Type Severity Reaction Status Date / Time No Known Allergies Allergy Verified 01/27/21 18:21 Review of Systems ROS Statement: Those systems with pertinent positive or pertinent negative responses have been documented in the HPI. ROS Other: All systems not noted in ROS Statement are negative. Past Medical History Past Medical History: No Reported History History of Any Multi-Drug Resistant Organisms: None Reported Past Surgical History: Section Additional Past Surgical History / Comment(s): [place] teeth Past Anesthesia/Blood Transfusion Reactions: No Reported Reaction Past Psychological History: Anxiety Smoking Status: Never smoker Past Alcohol Use History: Occasional Past Drug Use History: None Reported - Past Family History Mother Family Medical History: Hypertension General Exam Limitations: no limitations General appearance: alert, in no apparent distress Head exam: Present: atraumatic, normocephalic, normal inspection Eye exam: Present: normal appearance, PERRL, EOMI. Absent: scleral icterus, conjunctival injection, periorbital swelling ENT exam: Present: normal exam, normal oropharynx, mucous membranes moist Neck exam: Present: normal inspection, full ROM. Absent: tenderness, meningismus, lymphadenopathy, thyromegaly Respiratory exam: Present: normal lung sounds bilaterally. Absent: respiratory distress, wheezes, rales, rhonchi, stridor Cardiovascular Exam: Present: regular rate, normal rhythm, normal heart sounds. Absent: systolic murmur, diastolic murmur, rubs, gallop, clicks GI/Abdominal exam: Present: soft, normal bowel sounds. Absent: distended, tenderness, guarding, rebound, rigid Rectal exam: Present: normal inspection, normal rectal tone. Absent: fecal impaction, hemorrhoids, mass, tenderness Extremities exam: Present: normal inspection, full ROM, normal capillary refill. Absent: tenderness, pedal edema, joint swelling, calf tenderness Back exam: Present: full ROM. Absent: tenderness, CVA tenderness (R), CVA tenderness (L), muscle spasm, paraspinal tenderness, vertebral tenderness, rash noted Neurological exam: Present: alert, oriented X3, CN II-XII intact, normal gait Psychiatric exam: Present: normal affect, normal mood Skin exam: Present: warm, dry, intact, normal color. Absent: rash, cyanosis, d iaphoretic, petechiae, pallor Course Vital Signs 01/27/21 01/27/21 17:15 18:58 Temperature 98.5 F Pulse Rate 100 78 Respiratory 18 16 Rate Blood Pressure 143/90 120/71 O2 Sat by Pulse 99 98 Oximetry Medical Decision Making - Medical Decision Making Social well-appearing 25-year-old female presents emergency room with complaints of feeling something protruding from her rectum twice today when having the sensation of needing to have a bowel movement. She was able to push it back in. She denies any bleeding or any pain. This is likely rectal prolapse. Upon physical exam patient was unable to prolapsed rectum in the side-lying position. Digital rectal exam is without masses. Patient denies problems with constipation. Urinalysis negative for infection or . She'll be put on Colace and directed to follow up with surgery. Case discussed with Dr. Tena - Lab Data Lab Results 01/27/21 01/27/21 Range/Units 18:10 18:10 Urine Color Yellow Urine Appearance Clear (Clear) Urine pH 6.5 (5.0-8.0) Ur Specific [place] 1.020 (1.001-1.035) Urine Protein Negative (Negative) Urine Glucose (UA) Negative (Negative) Urine Ketones Negative (Negative) Urine Blood Negative (Negative) Urine Nitrite Negative (Negative) Urine Bilirubin Negative (Negative) Urine Urobilinogen <2.0 (<2.0) mg/dL Ur Leukocyte Esterase Negative (Negative) Urine HCG, Qual Not Detected (Not Detectd) Disposition Clinical Impression: Rectal prolapse Disposition: HOME SELF-CARE Condition: Good Instructions (If sedation given, give patient instructions): Acute Low Back Pain (ED), Rectal Prolapse (ED) Additional Instructions: Take Colace [id number] for stool softener to prevent straining. Follow up with the surgeon as referred for continuation of care for possible rectal prolapse. Return to the emergency room with any new or worsening symptoms including bleeding or pain. Is patient prescribed a controlled substance at d/c from ED?: No Referrals: Jacquelyn Martins MD [Primary Care Provider] - 1-2 days Antoine Ryan MD [Medical Doctor] - 1-2 days Time of Disposition: 18:50
[2021-01-27] MEDS ORDERED: IBUPROFEN 800 MG TAB PO STA (18:03)
[2021-01-27 18:26] LABS: Appearance,Urine Clear (Clear); Bilirubin,Urine Negative (Negative); Blood,Urine Negative (Negative); Color,Urine Yellow; Glucose,Urine (UA) Negative (Negative); Ketones,Urine Negative (Negative); Leukocyte Esterase,Urine Negative (Negative); Nitrite,Urine Negative (Negative); PH, Urine 6.5 (5.0-8.0); Protein,Urine Negative (Negative); Urobilinogen,Urine <2.0 mg/dL (<2.0)
[2021-01-27 18:59] VITALS: BP 120/71; PULSE 78; RESP 16
== END 2021-01-27 18:59 | disposition home or self-care (01) ==
LOC: EC 17:00
DX: K62.3 Rectal prolapse (principal); F41.9 Anxiety disorder, unspecified; Z79.899 Other long term (current) drug therapy; Z82.49 Family history of ischemic heart disease and other diseases of the circulatory system
CPT/HCPCS: 81003; 81025; 99283

== ENCOUNTER → 2024-05-06 | Outpatient (CLI) | payer BC, OTHER ==
--- NOTE | 2024-05-06 12:38 | MR ---
EXAMINATION TYPE: MR brain wo con DATE OF EXAM: 05/06/2024 10:43 AM COMPARISON: None. 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 No gadolinium was given. FINDINGS: The diamond-white junctions, ventricular system, basal cisterns appear unremarkable. Scattered foci of high T2 signal intensity are seen within the periventricular white matter. Midline structures show n o abnormality. Diffusion-weighted imaging shows no evidence of restricted diffusion. The susceptibili ty weighted images do not reveal any evidence for micro-hemorrhage. The bone marrow signal is within normal limits. Paranasal sinuses and mastoid air cells: No significant paranasal sinus disease. Visualized orbits: Orbital contents are intact. IMPRESSION: No evidence for restricted diffusion or significant white matter changes to suggest active demyelinat ion. No evidence of intracranial mass or acute/subacute infarct. [facility], , 05/06/2024 12:36 PM
== END | disposition home or self-care (01) ==
LOC: RADMRIMAIN 10:08
PROVIDERS: ATTEND Psychiatry & Neurology Neurology
DX: G37.9 Demyelinating disease of central nervous system, unspecified (principal)
CPT/HCPCS: 70551